=== PATIENT | female | born 1955 | race Caucasian/White ===

== ENCOUNTER 2022-07-05 12:44 | Outpatient (REF) | payer OTHER, MEDICARE, SELFPAY ==
[2022-07-05 13:00] LABS: Appearance Urine Clear; Color Urine Yellow; Glucose Urine UA Negative (Negative); Leukocyte Esterase Urine Large (3+) (Negative); Nitrite Urine Negative (Negative); PH 6.5 (5.0-9.0); UMIC TRIGGER UACC YES; Urine Blood Small (1+) (Negative); Urine Ketones Negative (Negative); Urine Protein Negative (Neg-Trace)
[2022-07-05 13:20] LABS: Bacteria Urine 1+ (None Seen); Hyaline Casts Urine 0-2 /LPF (0-2); UACC Culture Trigger YES; WBC Urine 21-50 /HPF (0-5)
== END 2022-07-05 12:45 | disposition home or self-care (01) ==
LOC: HO.LNP 12:44
PROVIDERS: Visit Provider Nurse Practitioner Family
DX: R30.0 Dysuria (principal)
CPT/HCPCS: 81001; 81003; 87086

== ENCOUNTER 2023-04-12 08:52 | Day surgery (SDC) | payer OTHER, MEDICARE, SELFPAY ==
[2023-04-10 15:57] VITALS: BMI 27.2
--- NOTE | 2023-04-11 10:29 | HO.ANESPROP2 ---
Documented by User: Alexus Michael NP 04/11/23 10:29 HPI - Anesthesia Eval Consult details Narrative: 67yo F for Colonoscopy PMFSH Active Problems Active Problems: All Active Problems (Updated 04/10/23 @ 15:56 by Gabriela Guzman, GRAYSON) Dysuria (Acute) Past Medical History Medical History Pernicious anemia IBS (irritable bowel syndrome) GERD (gastroesophageal reflux disease) Hiatal hernia Diverticulosis Surgical History Surgical History S/P JOHANNA (total abdominal hysterectomy) Hx of colonoscopy Social History Social History Patient Tobacco Use Status: Never used Tobacco Meds Allergies Allergy/AdvReac Type Severity Reaction Status Date / Time No Known Allergies Allergy Verified 04/12/23 09:36 Home Medications Medication Instructions Recorded Confirmed Last Taken Type alendronate 70 mg tablet 70 mg PO QWEEK 07/05/22 04/12/23 Unknown History cyanocobalamin (vitamin B-12) 500 500 mcg intranasal QWEEK 07/05/22 04/12/23 Unknown History mcg/spray nasal spray (Nascobal) omeprazole 20 mg capsule,delayed 20 mg PO DAILY 07/05/22 04/12/23 04/12/23 History release Exam Height,Weight and Vital Signs: Height 5 ft 4.75 in Weight 73.482 kg Assessment and Plan Assessment Anesthesia Assessment: Chart Reviewed Documented by User: Mayda Ayers MD 04/12/23 10:28 PMFSH Active Problems Active Problems: All Active Problems (Updated 04/12/23 @ 09:21 by Mayda Ayers MD) Dysuria (Acute) Past Medical History Medical History Pernicious anemia IBS (irritable bowel syndrome) GERD (gastroesophageal reflux disease) Hiatal hernia Diverticulosis Family History Family history of problems with anesthesia: No Surgical History Surgical History S/P JOHANNA (total abdominal hysterectomy) Hx of colonoscopy History of Problems with Anesthesia: No Social History Social History Patient Tobacco Use Status: Never used Tobacco Meds Allergies Allergy/AdvReac Type Severity Reaction Status Date / Time No Known Allergies Allergy Verified 04/12/23 09:36 Home Medications Medication Instructions Recorded Confirmed Last Taken Type alendronate 70 mg tablet 70 mg PO QWEEK 07/05/22 04/12/23 Unknown History cyanocobalamin (vitamin B-12) 500 500 mcg intranasal QWEEK 07/05/22 04/12/23 Unknown History mcg/spray nasal spray (Nascobal) omeprazole 20 mg capsule,delayed 20 mg PO DAILY 07/05/22 04/12/23 04/12/23 History release Exam Height,Weight and Vital Signs: Height 5 ft 4.75 in Weight 73.482 kg Vital Signs Temp Pulse Resp BP Pulse Ox O2 Del Method 04/12/23 09:36 98.9 F 64 16 151/60 H 100 Room Air Airway Mallampati Class: II TM Dist: >3cm Neck ROM: Full Loose/Missing/Broken Teeth: No (Denies broken, loose, missing teeth) Heart: RRR Lungs: CTAB Assessment and Plan Assessment Anesthesia Assessment: Anesthesia Plan Discussed Final Anesthetic Review Family History of Problems with Anesthesia: No History of Problems with Anesthesia: No NPO: Yes ASA Class: II Final Preanesthetic Review: No Changes in Pt Med Stat, Meds/Allgs Chart Reviewed, Consent Obtained/Reviewed and Anes Risks/Benef Reviewed Patient Risk: Low Procedure Risk: Low Assessment/Block/Sedation in SS: Assess/Block/Sedation-SS Anesthetic Plan Anesthetic Plan: MAC: Disposition: Standard PACU
[2023-04-12 09:36] VITALS: BP 151/60; PULSE 64; RESP 16; TEMP 37.2; O2SAT 100; BMI 27.7
[2023-04-12] MEDS: Lactated Ringers 1,000 ML 100 ML IVCONT (10:23)
[2023-04-12 11:24] VITALS: BP 113/66; PULSE 84; RESP 16; TEMP 36.1; O2SAT 98
--- NOTE | 2023-04-12 11:24 | PM.OP ---
Brief Operative Note Date of Service: 04/12/23 Pre-op diagnosis: Screening Post-op diagnosis: other (Diverticulosis) Procedure: Colonoscopy to the cecum Surgeon: Yadiel Ramirez MD Anesthesia: MAC Was an Community Development Worker used for this Procedure?: No Estimated blood loss (mL): 0 Pathology: none sent Condition: stable Disposition: PACU
--- NOTE | 2023-04-12 11:42 | OP_ITS ---
DATE OF SERVICE: 04/12/2023 SURGEON: Yadiel Ramirez MD INDICATIONS: The patient presents for evaluation of colorectal cancer screening and personal history of tubular adenomas of the colon. Full consent has been obtained from her for this, including risks of bleeding and perforation. PREOPERATIVE DIAGNOSIS: POSTOPERATIVE DIAGNOSIS: PROCEDURE PERFORMED: Colonoscopy to the cecum. ESTIMATED BLOOD LOSS: COMPLICATIONS: ANESTHESIA: Monitored anesthesia care. ASSISTANTS: SPECIMENS: PREOPERATIVE DIAGNOSES: Colorectal cancer screening and personal history of tubular adenoma of the colon. POSTOPERATIVE DIAGNOSES: Colorectal cancer screening and personal history of tubular adenoma of the colon, diverticulosis and internal hemorrhoids. DESCRIPTION OF PROCEDURE: The patient was placed in the left lateral decubitus position. The digital rectal exam revealed no abnormalities. The Olympus video pediatric colonoscope was entered into the rectum and advanced easily to the cecum. Once in the cecum, I did identify normal-appearing cecal pouch with appendiceal orifice and a normal-appearing ileocecal valve. The entire cecum and ileocecal valve appeared normal. The scope was slowly withdrawn assessing all mucosal surfaces carefully. Preparation was excellent. I did not visualize any sign of polyps, colitis, nor angiodysplasia. There was a mild amount of sigmoid diverticulosis. In the rectum, scope was retroflexed visualizing internal hemorrhoids, but no other pathology. The rectal mucosa appeared normal. Scope was straightened and withdrawn from the patient. She tolerated the procedure well and was returned to the recovery area in stable condition. IMPRESSION: 1. Diverticulosis. 2. Internal hemorrhoids. PLAN: Given her previous history, I would recommend a followup colonoscopy in 5 years for further screening and surveillance. She will otherwise see me on a p.r.n. basis. MD ANGELICA Go/RAHELL / [id number]
[2023-04-12 11:53] VITALS: BP 138/76; PULSE 66; RESP 18; TEMP 36.1; O2SAT 96
== END 2023-04-12 12:20 | disposition home or self-care (01) ==
PROVIDERS: PCP Nurse Practitioner Family; Visit Provider Internal Medicine
PROC: 0DJD8ZZ Inspection of Lower Intestinal Tract, Via Natural or Artificial Opening Endoscopic (ICD-10-PCS; CPT 45378; principal; 2023-04-12 10:10)
DX: Z12.11 Encounter for screening for malignant neoplasm of colon (principal); K57.30 Diverticulosis of large intestine without perforation or abscess without bleeding; K64.8 Other hemorrhoids; Z86.010 Personal history of colon polyps; K21.9 Gastro-esophageal reflux disease without esophagitis; K44.9 Diaphragmatic hernia without obstruction or gangrene; D51.0 Vitamin B12 deficiency anemia due to intrinsic factor deficiency
CPT/HCPCS: G0105; J2704